=== PATIENT | male | born 1935 | race African-American/Black ===

== ENCOUNTER 2016-05-01 07:12 | Emergency (ER) | payer MEDICARE, BC ==
[~2016-05-01] VITALS: Ht 175.3 cm; Wt 77.1 kg
[~2016-05-01 07:12] MED LIST: AZOPT10 ML OP; COMBIGAN EYE DRO5 ML OP; LOSARTAN-HCTZ1 EAC2 PO; LUMIGAN2.5 ML BOTH EYES; VENTOLIN HFA18 GM INH
--- NOTE | 2016-05-01 07:54 | Emergency Room Report ---
History of Present Illness General Chief Complaint: Asthma Source: Patient Present Illness HPI 80 YO M with history of asthma, non-smoker, presents with "hearing wheeze on left side when I lay down," SOB, right leg swelling. Had ECHO in March that was "normal." No history of CHF that he knows. Was told he has "leaking left ventricle." On Losartan for HTN. Denies other medical problems. Feels palpitations and irregular heart beat occasionally. Otherwise denies cough, chest pain, fever/chills, abd pain, urinary complaints. Allergies: Coded Allergies: No Known Allergies (Unverified , 12/17/12) Patient History Past Medical History: HTN Past Surgical History: none Pertinent Family History: none Social History: Denies: alcohol use, drug use, smoking Immunizations: UTD Reviewed Nursing Documentation: PMH: Agreed, PSxH: Agreed Nursing Documentation-PMH Hx Cardiac Problems: Yes Hx Hypertension: Yes Hx Asthma: Yes - on ventolin Hx Cancer: No Hx Dialysis: No Hx Neurological Problems: No Review of Systems All Other Systems: negative except mentioned in HPI Physical Exam Vital Signs Date Time Temp Pulse Resp B/P Pulse Ox O2 Delivery O2 Flow Rate FiO2 05/01/16 07:19 98.2 90 16 154/79 96 Room Air Sp02 EP Interpretation: reviewed, normal General Appearance: normal inspection, well appearing, no apparent distress, alert, GCS 15, non-toxic Head: normocephalic, atraumatic Eyes: bilateral eye EOMI, bilateral eye PERRL ENT: normal ENT inspection, hearing grossly normal, normal pharynx, no angioedema, normal voice Neck: normal inspection, full range of motion, supple, thyroid normal, no meningismus, no bony tend Respiratory: normal inspection, no respiratory distress, no retraction, no accessory muscle use, rales, speaking full sentences Cardiovascular #1: regular rate, rhythm, no edema Gastrointestinal: normal inspection, normal bowel sounds, non tender, soft, no guarding, no hernia Genitourinary: no CVA tenderness Musculoskeletal: normal inspection Neurologic: other - right lower extremity, mild +1 pitting edema Psychiatric: normal inspection, judgement/insight normal, mood/affect normal Skin: normal inspection, normal color, no rash Medical Decision Making Diagnostic Impression: Primary Impression: Dyspnea Qualified Codes: R06.00 - Dyspnea, unspecified Additional Impression: Chest rales ER Course Labs: No leuks. H&H stable. Mild serumCr elevation. BNP, troponin 0. CXR no acute process ECG is NSR, no ischemia. Patient remains stable As for crackles, ?wheeze from asthma. Low suspicion for acute CHF given normal BNP, normal CXR Spoke to Dr Winters, he prefers patient followup with him on Sunday (in 2 days) , likely needs repeat Echo. History of Recommends DC with Albuterol inhaler Patient agreeable with plan DC home EKG Diagnostic Results Rate: normal Rhythm: NSR ST Segments: no acute changes ASA given to the pt in ED: No Rhythm Strip Diag. Results EP Interpretation: yes Rate: 81 Rhythm: NSR, no PVC's, no ectopy Chest X-Ray Diagnostic Results EP Interpretation: Yes Findings: no consolidation, no effusion, no pneumothorax, no acute cardiopulmonary disease Number of Views: 1 Last Vital Signs Date Time Temp Pulse Resp B/P Pulse Ox O2 Delivery O2 Flow Rate FiO2 05/01/16 07:19 98.2 90 16 154/79 96 Room Air Status: improved Disposition: HOME, SELF-CARE Condition: Serious Referrals: PELON WINTERS (PCP) MARIA EUGENIA BECK M.D. May 01, 2016 07:54
[2016-05-01 08:41] VITALS: BP 155/84
[2016-05-01 09:35] LABS: BASOPHILS % (AUTO) 3.6 % (0.0-2.0); EOSINOPHILS % (AUTO) 17.9 % (0.0-3.0); LYMPHOCYTES % (AUTO) 25.9 % (20.0-45.0); MEAN CORPUSCULAR HEMOGLOBIN 31.6 PG (27.0-31.0); MEAN CORPUSCULAR HGB CONC 32.8 G/DL (32.0-36.0); MEAN CORPUSCULAR VOLUME 96 FL (80-99); MONOCYTES % (AUTO) 9.9 % (1.0-10.0); NEUTROPHILS % (AUTO) 42.6 % (45.0-75.0); PLATELET COUNT 194 K/UL (150-450); RED BLOOD COUNT 5.02 M/UL (4.70-6.10); RED CELL DISTRIBUTION WIDTH 13.2 % (11.6-14.8); WHITE BLOOD COUNT 4.9 K/UL (4.8-10.8)
[2016-05-01 09:43] LABS: TROPONIN I < 0.30 ng/mL (<=0.30)
[2016-05-01 09:46] LABS: ALANINE AMINOTRANSFERASE 14 U/L (3-41); ALBUMIN/GLOBULIN RATIO 1.8 (1.0-2.7); ANION GAP 15 (5-15); ASPARTATE AMINO TRANSFERASE 23 U/L (5-40); CALCIUM 9.2 mg/dL (8.6-10.2); CARBON DIOXIDE 24 mEQ/L (20-30); CHLORIDE 103 mEQ/L (98-107); CREATININE 1.4 mg/dL (0.7-1.2); HEMOLYSIS 8; SODIUM 142 mEQ/L (135-145)
[2016-05-01 09:50] LABS: INR 1.1 (0.9-1.1); PROTHROMBIN TIME 10.9 SEC (9.30-11.50)
[2016-05-01 09:57] LABS: CKMB 3.9 ng/mL (< 6.7)
[2016-05-01] MEDS ORDERED: VENTOLIN HFA18 GM INH (10:28)
[2016-05-01 10:33] VITALS: BP 128/65
--- NOTE | 2016-05-01 10:44 | Diagnostic Imaging Report ---
Indication: Dyspnea Comparison: 07/22/07 A single view chest radiograph was obtained. Findings: Cardiomediastinal appearance is within normal limits for age. Pulmonary vascularity is appropriate. The diaphragmatic contour is smooth and costophrenic angles are sharp. No pleural effusions are identified. The bones are ischemic. Impression: No acute findings
--- NOTE | 2016-05-04 15:21 | Cardiology Report ---
APPROVED REPORT EKG Measurement Heart [id number] NM [id number] Normal sinus rhythm Normal ECG
== END 2016-05-01 10:52 | disposition home or self-care (01) ==
LOC: EMR 07:40
DX: R06.00 Dyspnea, unspecified (principal); J45.909 Unspecified asthma, uncomplicated; I10 Essential (primary) hypertension; R09.89 Other specified symptoms and signs involving the circulatory and respiratory systems
CPT/HCPCS: 36415; 71010; 80053; 82550; 82553; 83880; 84484; 85025; 85610; 93005; 99283

== ENCOUNTER 2018-08-29 13:10 | Outpatient (CLI) | payer MEDICARE, BC ==
[2018-08-29] MEDS ORDERED: [UNRECOGNIZED DRUG - REMARK] (15:23)
[2018-08-29] MEDS ORDERED: AMLODIPINE BES2.5 MG ORAL (15:23)
[2018-08-29 15:24] VITALS: BP 134/69
--- NOTE | 2018-08-29 18:15 | Consultation ---
DATE OF CONSULTATION: 08/29/2018 GASTROENTEROLOGY CONSULTATION CHIEF COMPLAINT: Referral for screening colonoscopy. HISTORY OF PRESENT ILLNESS: This is a very pleasant 83-year-old patient known to me, last time we saw him over 5 years ago when he had his colonoscopy done. He is back here for followup. PAST MEDICAL HISTORY: 1. Asthma. 2. Hypertension. 3. Glaucoma. PAST SURGICAL HISTORY: The patient had hernia repair. MEDICATIONS: He is on amlodipine, inhaler, and eyedrops. ALLERGIES: No known drug allergies. FAMILY HISTORY: Son had a colon cancer. SOCIAL HISTORY: The patient denies any tobacco, alcohol, or drug abuse. PHYSICAL EXAMINATION: VITAL SIGNS: Temperature 98.8, blood pressure 124/69, pulse 84, and respirations 20. HEENT: Normocephalic and atraumatic. Sclerae anicteric. NECK: Supple. No evidence of obvious lymphadenopathy. CARDIOVASCULAR: Regular rate and rhythm. Plus S1 and S2. No obvious murmur. LUNGS: Clear to auscultation bilaterally. ABDOMEN: Positive bowel sounds. Soft and nontender. No rebound. No guarding. No peritoneal sign. EXTREMITIES: No cyanosis. No clubbing. No edema. ASSESSMENT AND PLAN: This is an 83-year-old male with last colonoscopy in 2012, asymptomatic at this time. No alarming signs or symptoms. Given his age of 83, we are going to hold off doing a screening colonoscopy. At this time, we are going to order stool tests for DNA for malignancy. The patient to come back after the stool study is done. I want to thank, Dr. Smith Winters, for this kind referral. Diaz Garcia M.D. DR: MADHAVI JOB#: [id number] CC: Smith Winters M.D.; Fax#: [phone]
== END 2018-08-29 16:00 | disposition home or self-care (01) ==
LOC: PAN 13:10
DX: Z01.818 Encounter for other preprocedural examination (principal); I10 Essential (primary) hypertension; Z80.0 Family history of malignant neoplasm of digestive organs; Z79.899 Other long term (current) drug therapy; Z79.51 Long term (current) use of inhaled steroids
CPT/HCPCS: 99212

== ENCOUNTER 2018-09-16 13:55 | Outpatient (CLI) | payer MEDICARE, BC ==
[~2018-09-16 13:55] MED LIST changes: +AMLODIPINE BES2.5 MG ORAL; +[UNRECOGNIZED DRUG - REMARK]
--- NOTE | 2018-09-16 15:27 | General Progress Note ---
Assessment/Plan Assessment/Plan: stool IA positive plan EGD and colonoscopy Subjective ROS Limited/Unobtainable: Yes Allergies: Coded Allergies: No Known Allergies (Unverified , 12/17/12) Objective General Appearance: alert Neck: supple Cardiovascular: normal rate Respiratory/Chest: lungs clear Abdomen: normal bowel sounds, non tender, soft Extremities: non-tender Diaz Garcia MD Sep 16, 2018 15:27
[2018-09-16 16:24] VITALS: BP 139/76
== END 2018-09-16 15:55 | disposition home or self-care (01) ==
LOC: PAN 13:55
DX: R19.5 Other fecal abnormalities (principal)

== ENCOUNTER 2018-09-18 08:50 | Day surgery (SDC) | payer MEDICARE, BC ==
[2018-09-18] VITALS (9 sets, daily range): BP systolic 125–148; BP diastolic 67–83
[~2018-09-18] VITALS: Ht 174 cm; Wt 73.5 kg
--- NOTE | 2018-09-18 07:15 | Anethesia Preoperative Eval ---
Anesthesia Pre-op PMH/ROS General Date of Evaluation: Sep 18, 2018 Time of Evaluation: 07:13 Anesthesiologist: kevin ASA Score: ASA 3 Mallampati Score Class I : Soft palate, uvula, fauces, pillars visible Class II: Soft palate, uvula, fauces visible Class III: Soft palate, base of uvula visible Class IV: Only hard plate visible Mallampati Classification: Class II Surgeon: kevan Diagnosis: gerd, anemia Surgical Procedure: egd/colonoscopy Anesthesia History: none Social History: smoking - nonsmoker Family History: no anesthesia problems Allergies: Coded Allergies: No Known Allergies (Unverified , 12/17/12) Medications: see eMAR Patient NPO?: Yes Past Medical History Cardiovascular: Reports: HTN Pulmonary: Reports: asthma, other - bronchitis, Gastrointestinal/Genitourinary: Reports: GERD, other - diverticulosis HEENT: Reports: glaucoma Hematology/Immune: Reports: anemia Musculoskeletal/Integumentary: Reports: OA, other - back pain PSxH Narrative: vasectomy, Anesthesia Pre-op Phys. Exam Physician Exam Constitutional: NAD Neurologic: CN 2-12 intact Cardiovascular: RRR Respiratory: CTA Gastrointestinal: S/NT/ND Airway Exam Mallampati Score: Class II MO: limited Neck: flexible TMD: 2fb ROM: limited Anesthesia Pre-op A/P Risk Assessment & Plan Assessment: asa3 Plan: mac Status Change Before Surgery: No Pre-Antibiotics Drug: Ilana Luu MD Sep 18, 2018 07:15
[~2018-09-18 08:50] MED LIST changes: +Atropine Inj 1mg/10ml Syr IV PRN; +DiphenhydrAMINE 50mg/ml Inj IVP PRN; +Midazolam 2mg/2ml Inj IVP PRN; +fentaNYL 100 mcg/2 mL IV PRN
--- NOTE | 2018-09-18 09:47 | Pre-Procedure Note/Attestation ---
Pre-Procedure Note/Attestation Complete Prior to Procedure Planned Procedure: not applicable Procedure Narrative: esophagogastroduodenoscopy and colonoscopy Indications for Procedure Pre-Operative Diagnosis: screening colon, GERD Attestation I attest that I discussed the nature of the procedure; its benefits; risks and complications; and alternatives (and the risks and benefits of such alternatives ), prior to the procedure, with the patient (or the patient's legal client support representative). I attest that, if there was a reasonable possibility of needing a blood transfusion, the patient (or the patient's legal client support representative) was given the [facility] standardized written summary, pursuant to the Mick Gully Blood Safety Act ([place] Health and Safety Code # 1645, as amended). I attest that I re-evaluated the patient just prior to the surgery and that there has been no change in the patient's H&P, except as documented below: Diaz Garcia MD Sep 18, 2018 09:47
--- NOTE | 2018-09-18 09:47 | Short Stay Surgery H&P ---
History of Present Illness History of Present Illness Chief Complaint see recent office note HPI Cortez Moran is a 83 year old male who was admitted on for Gerd,Anemia Patient History Allergies: Coded Allergies: No Known Allergies (Unverified , 12/17/12) Medication History Scheduled Amlodipine Besylate* (Amlodipine Besylate*), 2.5 MG ORAL DAILY, (Reported) Bimatoprost (Lumigan), 1 DROP BOTH EYES DAILY, (Reported) Brimonidine Tartrate/Timolol (Combigan Eye Drops), 5 ML OP BID, (Reported) Brinzolamide (Azopt), 10 ML OP BID, (Reported) Miscellaneous Medications [Rescu Inhaler], (Reported) Plan Attestation Are the patient's medical conditions optimized for surgery? Diaz Garcia MD Sep 18, 2018 09:47
[2018-09-18] MEDS ORDERED: Propofol 200mg/20ml IV ONE (10:00)
[2018-09-18] MEDS ORDERED: Lidocaine 1% MPF 10mg/ml 5ml ONE (10:00)
--- NOTE | 2018-09-18 11:07 | Endoscopy Procedure Note ---
Endoscopy Procedure Note General Indication for Procedure: stool ob positive Procedures Performed: EGD, colonoscopy Operative Findings/Diagnosis: gastritis, diverticulosis Specimen: yes Pt Tolerated Procedure Well: Yes Estimated Blood Loss: none Anesthesia Anesthesiologist: kevin Anesthesia: MAC Inserted Devices Implant(s) used?: No Quality Quality of Bowel Preparation: Good Did scope reach the cecum?: Yes Was there any complications?: No GI Core Measures 50 yrs or older w/o bx or poly: No 10yrs. F/U recommended: Yes If not recommended, why?: Above average risk 18 years or older w/prev. colo: Yes <3yrs. since last colonoscopy: No Diaz Garcia MD Sep 18, 2018 11:07
[2018-09-18 11:31] LABS: BASOPHILS % (AUTO) 2.5 % (0.0-2.0); EOSINOPHILS % (AUTO) 9.8 % (0.0-3.0); HEMOGLOBIN 15.3 G/DL (14.2-18.0); LYMPHOCYTES % (AUTO) 24.9 % (20.0-45.0); MEAN CORPUSCULAR VOLUME 95 FL (80-99); MONOCYTES % (AUTO) 15.9 % (1.0-10.0); NEUTROPHILS % (AUTO) 46.9 % (45.0-75.0); PLATELET COUNT 189 K/UL (150-450); RED BLOOD COUNT 4.72 M/UL (4.70-6.10); RED CELL DISTRIBUTION WIDTH 12.3 % (11.6-14.8); WHITE BLOOD COUNT 4.3 K/UL (4.8-10.8)
--- NOTE | 2018-09-18 14:15 | Immediate Post-Op Evaluation ---
Immediate Post-Op Evalulation Immediate Post-Op Evalulation Procedure: egd/colonoscopy w/bx Date of Evaluation: Sep 18, 2018 Time of Evaluation: 11:18 IV Fluids: 600ml 0.9ns Blood Products: none Estimated Blood Loss: negligible Blood Pressure Systolic: 136 Blood Pressure Diastolic: 67 Pulse Rate: 89 Respiratory Rate: 18 O2 Sat by Pulse Oximetry: 98 Temperature (Fahrenheit): 97.2 Pain Score (1-10): 0 Nausea: No Vomiting: No Complications none Patient Status: awake, reacts, patent Hydration Status: adequate Drug: Ilana Luu MD Sep 18, 2018 14:15
--- NOTE | 2018-09-18 14:18 | 48 Hour Post Anesthesia Eval ---
Post Anesthesia Evaluation Procedure: egd/colonoscopy w/bx Date of Evaluation: Sep 18, 2018 Time of Evaluation: 11:20 Blood Pressure Systolic: 138 0: 78 Pulse Rate: 82 Respiratory Rate: 18 Temperature (Fahrenheit): 97.2 O2 Sat by Pulse Oximetry: 98 Airway: patent Nausea: No Vomiting: No Pain Intensity: 0 Hydration Status: adequate Cardiopulmonary Status: stable Mental Status/LOC: patient returned to baseline Post-Anesthesia Complications: none Follow-up care needed: N/A Ilana Youssef MD Sep 18, 2018 14:18
--- NOTE | 2018-09-18 16:15 | Procedure Note ---
DATE OF PROCEDURE: 09/18/2018 SURGEON: Diaz Garcia M.D. PROCEDURE: Upper endoscopy with biopsy and colonoscopy. ANESTHESIA: Per Dr. Lopez. INSTRUMENT: Olympus adult flexible upper endoscope and colonoscope. INDICATION: Stool OB positive. REASON FOR PROCEDURE: The procedure, risks, benefits, and possible consequences, including hemorrhage, aspiration, perforation and infection, and alternative treatments, were explained to the patient/legal guardian by Dr. Diaz Garcia and the patient/legal guardian understood and accepted these risks. PROCEDURE IN DETAIL: After informed consent was obtained and the patient was adequately sedated, Olympus upper endoscope was advanced from mouth into the second portion of the duodenum and retroflexion was performed in the stomach. The patient had evidence of diffuse gastritis. The patient has evidence of small hiatal hernia. Multiple biopsies from antrum and body was obtained to rule out H. pylori infection. At this time, the upper endoscope was retrieved and the patient was turned over for colonoscopy. First, rectal examination was performed, which was positive for internal hemorrhoids. Then, the adult scope was advanced from rectum into the sigmoid. The patient had significant diverticulosis. We could not pass the adult scope through, so we switched to the pediatric colonoscope and we were able to pass through into the cecum. Quality of prep was good. The patient had normal colonoscopy examination except for significant diverticulosis, especially in the left colon. Retroflexion of rectum showed evidence of internal hemorrhoids. SUMMARY OF FINDINGS: 1. Gastritis, status post biopsy. 2. Hiatal hernia. 3. Internal hemorrhoids. 4. Significant diverticulosis. RECOMMENDATIONS: Follow up biopsy results. We will check CBC for today. If the patient is anemic, we will consider capsule endoscopy for evaluation of source of GI bleeding. Diaz Garcia M.D. DR: SHIVAM JOB#: [id number] CC:
--- NOTE | 2018-09-20 16:06 | Cardiology Report ---
APPROVED REPORT EKG Measurement Heart [id number] MI [id number] [id number] Normal sinus rhythm Normal ECG
== END 2018-09-18 12:10 | disposition home or self-care (01) ==
LOC: GAS 08:50
DX: R19.5 Other fecal abnormalities (principal); K44.9 Diaphragmatic hernia without obstruction or gangrene; K64.8 Other hemorrhoids; K57.90 Diverticulosis of intestine, part unspecified, without perforation or abscess without bleeding; K29.50 Unspecified chronic gastritis without bleeding; K21.9 Gastro-esophageal reflux disease without esophagitis; Z79.899 Other long term (current) drug therapy; I10 Essential (primary) hypertension; M19.90 Unspecified osteoarthritis, unspecified site
CPT/HCPCS: 36415; 43239; 45378; 82378; 85025; 93005; J2704; 94003; 94150

== ENCOUNTER 2018-10-09 12:25 | Outpatient (CLI) | payer MEDICARE, BC ==
[~2018-10-09 12:25] MED LIST changes: -Atropine Inj 1mg/10ml Syr IV PRN; -DiphenhydrAMINE 50mg/ml Inj IVP PRN; -Midazolam 2mg/2ml Inj IVP PRN; -fentaNYL 100 mcg/2 mL IV PRN
--- NOTE | 2018-10-09 12:32 | General Progress Note ---
Assessment/Plan Problem List: (1) Diverticulosis ICD Codes: K57.90 - Diverticulosis of intestine, part unspecified, without perforation or abscess without bleeding SNOMED: 589004273 (2) Gastritis ICD Codes: K29.70 - Gastritis, unspecified, without bleeding SNOMED: 9286347 (3) Constipation ICD Codes: K59.00 - Constipation, unspecified SNOMED: 07144146 Assessment/Plan: esophagogastroduodenoscopy and colonoscopy reviewed add mirala RTC prn Subjective ROS Limited/Unobtainable: Yes Allergies: Coded Allergies: No Known Allergies (Unverified , 12/17/12) Objective General Appearance: alert EENT: normal ENT inspection Neck: supple Cardiovascular: normal rate Respiratory/Chest: lungs clear Abdomen: normal bowel sounds, non tender, soft Extremities: non-tender Diaz Garcia MD Oct 09, 2018 12:32
== END 2018-10-09 14:25 | disposition home or self-care (01) ==
LOC: PAN 12:25
DX: K57.90 Diverticulosis of intestine, part unspecified, without perforation or abscess without bleeding (principal); K29.70 Gastritis, unspecified, without bleeding; K59.00 Constipation, unspecified
CPT/HCPCS: 99212